=== PATIENT | male | born 2000 | race Caucasian/White ===

== ENCOUNTER 2020-10-19 14:28 | Emergency (ER) | payer OTHER, MEDICAID, SELFPAY ==
[2020-10-19 14:37] VITALS: BP 123/76; BP 142/80; PULSE 80; PULSE 90; RESP 16; TEMP 36.4; O2SAT 98; O2SAT 99; BMI 22.2
--- NOTE | 2020-10-19 14:59 | CT_ITS ---
EXAMINATION: CT CERVICAL SPINE WITHOUT CONTRAST CLINICAL INFORMATION: Flank pain COMPARISON: None TECHNIQUE: Axial images through the cervical spine without contrast. Sagittal and coronal reconstructions on the technologist workstation were performed. This CT examination was performed using dose optimization techniques as appropriate, variously including the following: *Automated exposure control *Adjustment of mA and/or kV according to patient size (this includes techniques or standardized protocols for targeted exams where dose is matched to indication/reason for exam; i.e. extremities or head) *Use of iterative reconstruction technique DLP: 2 x 3 mGy-cm FINDINGS: Bone alignment is normal. No fracture or dislocation is seen. Disc spaces are normal. Prevertebral soft tissues are normal. Visualized lung apices are clear. CT/CT cervical spine wo con IMPRESSION: Unremarkable examination.
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
[2020-10-19 15:04] VITALS: BP 142/80; PULSE 90; RESP 18; O2SAT 98
--- NOTE | 2020-10-19 15:06 | XR_ITS ---
EXAMINATION: RIGHT HAND/WRIST CLINICAL INFORMATION: Injury. COMPARISON: None TECHNIQUE: 4 views. FINDINGS: There is no visible acute fracture, dislocation or subluxation. No bony erosive changes seen. The soft tissues are normal. XR/XR hand wrist RT IMPRESSION: Unremarkable right hand/wrist exam.
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
--- NOTE | 2020-10-19 16:00 | PC.NURSE ---
Patient appears comfortable. Respirations remain regular and even. Skin PWD. Awaiting imaging results.
== END 2020-10-19 16:38 | disposition home or self-care (01) ==
PROVIDERS: Emergency Provider Emergency Medicine; PCP Pediatrics
DX: S16.1XXA Strain of muscle, fascia and tendon at neck level, initial encounter (principal); M54.2 Cervicalgia; M54.5 Low back pain; M79.641 Pain in right hand; M25.531 Pain in right wrist; V47.5XXA Car driver injured in collision with fixed or stationary object in traffic accident, initial encounter; Y93.9 Activity, unspecified; Y92.481 Parking lot as the place of occurrence of the external cause; Y99.9 Unspecified external cause status; F12.90 Cannabis use, unspecified, uncomplicated; F17.200 Nicotine dependence, unspecified, uncomplicated; Z71.6 Tobacco abuse counseling
CPT/HCPCS: 72125; 73110; 73130; 99284

== ENCOUNTER 2020-10-29 23:08 | Emergency (ER) | payer MEDICAID, SELFPAY ==
[2020-10-29 23:20] VITALS: BP 143/92; PULSE 98; RESP 16; TEMP 37.1; O2SAT 99; BMI 20.6
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
== END 2020-10-30 00:21 | disposition home or self-care (01) ==
PROVIDERS: Emergency Provider Student in an Organized Health Care Education/Training Program
DX: S61.512A Laceration without foreign body of left wrist, initial encounter (principal); S61.511A Laceration without foreign body of right wrist, initial encounter; X78.9XXA Intentional self-harm by unspecified sharp object, initial encounter; Z20.828 Contact with and (suspected) exposure to other viral communicable diseases; F17.200 Nicotine dependence, unspecified, uncomplicated; Y93.9 Activity, unspecified; Y92.009 Unspecified place in unspecified non-institutional (private) residence as the place of occurrence of the external cause; Y99.9 Unspecified external cause status
CPT/HCPCS: 99283

== ENCOUNTER 2020-11-16 19:46 | Emergency (ER) | payer MEDICAID, SELFPAY ==
[2020-11-16 20:16] VITALS: BP 125/59; PULSE 79; RESP 17; TEMP 36.6; O2SAT 97; BMI 21.1
--- NOTE | 2020-11-16 21:06 | ECG_ITS ---
Test Reason : CRISIS Blood Pressure : / mmHG Vent. Rate : 053 BPM Atrial Rate : 053 BPM P-R Int : 164 ms QRS Dur : 096 ms QT Int : 416 ms P-R-T Axes : 040 072 056 degrees QTc Int : 390 ms Sinus bradycardia with sinus arrhythmia Early Repolarization Borderline ECG When compared with ECG of 29-MAR-2020 06:30, Vent. rate has decreased BY 38 BPM Referred By: Frandy Conde Electronically Signed By:BRENDA BRAVO MD
[2020-11-16 21:42] LABS: Basophils Percent Auto 0.5 % (0-2); Eosinophils Absolute Auto 0.1 X10*3/uL (0.0-0.4); Eosinophils Percent Auto 1.1 % (0-4); Hematocrit 41.4 % (42-52); Hemoglobin 13.3 g/dl (14.0-18.0); Imm Gran Abs Auto 0.02 X10*3/uL (0.00-0.03); Imm Gran Pct Auto 0.2 % (0.0-0.4); Lymphocytes Absolute Auto 1.5 X10*3/uL (1.2-4.9); Lymphocytes Percent Auto 18.4 % (20-40); MANUAL DIFF FLAG NO; Mean Corpuscular HGB Conc 32.1 g/dl (31.0-36.0); Mean Corpuscular Hemoglobin 27.6 pg (27.0-33.0); Mean Corpuscular Volume 85.9 fL (80-98); Mean Platelet Volume 10.9 fL (9.4-12.4); Monocytes Absolute Auto 0.7 X10*3/uL (0.1-1.2); Monocytes Percent Auto 8.2 % (2-11); Neutrophils Percent Auto 71.6 % (45-73); Platelet Count 253 X10*3/uL (160-400); Red Blood Count 4.82 X10*6/uL (4.60-5.80); Red Cell Distribution Width 12.9 % (11.0-16.0); White Blood Count 8.4 X10*3/uL (4.8-10.8)
[2020-11-16 21:43] VITALS: BP 108/64; PULSE 59; RESP 16; TEMP 36.6; O2SAT 98
[2020-11-16 21:50] LABS: INTERNATIONAL NORM RATIO 1.1 (0.9-1.1); Prothrombin Time 12.8 SEC (10.8-13.0)
[2020-11-16 21:53] LABS: Partial Thromboplastin Time 31.8 SEC (24.1-38.0)
[2020-11-16 22:11] LABS: Ethanol < 10 mg/dL
[2020-11-16 22:13] LABS: Acetaminophen LAB < 1 mcg/mL (<30); Alanine Aminotransferase 16 U/L (0-40); Albumin Level 4.3 g/dL (3.5-5.0); Alkaline Phosphatase 71 U/L (39-117); Anion Gap 11 (12-20); Aspartate Amino Transferase 18 U/L (5-37); Bilirubin Direct 0.2 mg/dL (0.0-0.5); Bilirubin Total 0.5 mg/dL (0.0-1.0); Blood Urea Nitrogen 7 mg/dL (9-16); Calcium 9.1 mg/dL (8.4-10.2); Carbon Dioxide 29 mmol/L (22-29); Chloride 102 mmol/L (96-108); Creatinine Clr Calc Pharmacy 140.1; Estimated Glomerular Filt Rate > 60; Glucose Random 121 mg/dL (60-115); Potassium 4.5 mmol/l (3.3-5.1); Salicylate < 5.0 mg/dL (15-30); Sodium 137 mmol/L (135-145); Total Protein 6.9 g/dL (6.5-8.0)
--- NOTE | 2020-11-16 22:56 | PC.NURSE ---
Pt currently resting in bed. No signs of distress. Respirations unlabored.
--- NOTE | 2020-11-16 22:58 | PC.NURSE ---
[place] [employer] at bedside with patient
[2020-11-16 23:08] LABS: Amphetamine Screen Urine Not Detected (Not Detect); Barbiturates, Urine Not Detected (Not Detect); Benzodiazepines Screen Urine Not Detected (Not Detect); Cannabinoid Screen Urine POSITIVE (Not Detect); Cocaine Screen Urine Not Detected (Not Detect); Opiate Screen Urine Not Detected (Not Detect); Phencyclidine Screen Urine Not Detected (Not Detect)
--- NOTE | 2020-11-16 23:37 | PC.NURSE ---
Report received. PT is using the phone. Calm and cooperative. Waiting on disposition.
[2020-11-16 23:59] VITALS: BP 117/62; PULSE 82; RESP 17; TEMP 36.1; O2SAT 96
--- NOTE | 2020-11-17 00:32 | PC.NURSE ---
[facility] faxed and called.
[2020-11-17 01:20] VITALS: BP 117/62; PULSE 82; RESP 18; TEMP 36.1; O2SAT 96
--- NOTE | 2020-11-17 01:45 | ED_ITS ---
HPI - Psych General Chief Complaint: Psychiatric Symptoms <AMANDA Obrien Last Filed: 11/17/20 02:45> Stated Complaint: crisis <AMANDA Obrien Last Filed: 11/17/20 02:45> Time Seen by Provider: 11/16/20 21:06 <AMANDA Obrien Last Filed: 11/17/20 02:45> Source: patient <AMANDA Obrien Last Filed: 11/17/20 02:45> Mode of arrival: EMS <AMANDA Obrien Last Filed: 11/17/20 02:45> Limitations: no limitations <AMANDA Obrien Last Filed: 11/17/20 02:45> History of Present Illness HPI Narrative: Patient presents to the ER because he is depressed. Patient states he has been having issues with his girlfriend. Patient states in the morning he took two.2 clonidine pills to help him sleep. Patient then took 2 more pills of clonidine 0.2 two sleepafternoon. Patient then states when he woke up he got into argument with his girlfriend who has been having issues. Patient states whether organ both became angry and out of impulse patient grabbed a bottle of clonidine with the 30 pills in total and put then in the mouth and gargle powera de. Patient states he was not trying to kill himself. Patient states he was trying to get his girlfriend attention. Patient states he did not swallow any of the pills and he spit all them out. Patient brought in by EMS for evaluation. EMS found 20 pills and states the rest might have been dissolved from the powerade and snow. <AMANDA Obiren Last Filed: 11/17/20 02:45> Related Data Home Medications: Previous Rx's Medication Instructions Recorded ibuprofen 600 mg PO Q6H PRN #20 tab 10/19/20 <AMANDA Obrien Last Filed: 11/17/20 02:45> Allergies/Adverse Reactions: Allergies Allergy/AdvReac Type Severity Reaction Status Date / Time No Known Allergies Allergy Unverified 08/13/20 17:15 [No Known Allergies*] <AMANDA Obrien Last Filed: 11/17/20 02:45> Review of Systems Review of Systems: Yes all other systems are reviewed and are negative <AMANDA Obrien Last Filed: 11/17/20 02:45> Constitutional: Constitutional: Reports as per HPI and Reports no additional constitutional complaints <AMANDA Obrien Last Filed: 11/17/20 02:45> Eyes: Eyes: Reports as per HPI and Reports no additional eye complaints <AMANDA Obrien Last Filed: 11/17/20 02:45> ENT: Reports system reviewed and no additional complaints, except as documented and Reports as per HPI <AMANDA Obrien Last Filed: 11/17/20 02:45> Cardiovascular: Cardiovascular: Reports as per HPI and Reports no additional cardiovascular complaints <AMANDA Obrien Last Filed: 11/17/20 02:45> Respiratory: Respiratory: Reports as per HPI and Reports no additional respiratory complaints <AMANDA Obrien Last Filed: 11/17/20 02:45> Gastrointestinal: Gastrointestinal: Reports as per HPI and Reports no additional gastrointestinal complaints <AMANDA Obrien Last Filed: 11/17/20 02:45> Genitourinary: Genitourinary: Reports no additional male genitourinary complaints and Reports as per HPI <AMANDA Obrien Last Filed: 11/17/20 02:45> Musculoskeletal: Musculoskeletal: Reports no additional musculoskeletal complaints and Reports as per HPI <AMANDA Obrien Last Filed: 11/17/20 02:45> Neurologic: Reports system reviewed and no additional complaints, except as documented and Reports as per HPI <AMANDA Obrien Last Filed: 11/17/20 02:45> Psychiatric: Psychiatric: Reports no additional psychiatric complaints and Reports as per HPI <AMANDA Obrien Last Filed: 11/17/20 02:45> PMFSH Past Medical History Medical History: Medical History Anxiety Depression <AMANDA Obrien Last Filed: 11/17/20 02:45> Social History Social History: Social History Alcohol intake: unknown Smoking Status: Unknown if ever smoked Use of substances other than those prescribed or required for medical reasons: Unknown Substance Use Type: Marijuana Advance Directives: No Advance Directives Information Provided: No <AMANDA Obrien Last Filed: 11/17/20 02:45> Physical Exam Vital Signs: Vital Signs: Last Vital Signs Temp 96.9 F 11/17/20 01:20 Pulse 82 11/17/20 01:20 Resp 18 11/17/20 01:20 BP 117/62 11/17/20 01:20 Pulse Ox 96 11/17/20 01:20 Body Mass Index 21.1 <AMNADA Obrien - Last Filed: 11/17/20 02:45> Vital Signs: Last Vital Signs Temp 96.9 F 11/17/20 01:20 Pulse 82 11/17/20 01:20 Resp 18 11/17/20 01:20 BP 117/62 11/17/20 01:20 Pulse Ox 96 11/17/20 01:20 Body Mass Index 21.1 <Vincenzo Sotelo MD - Last Filed: 11/17/20 03:59> Const: General: cooperative, healthy appearing, comfortable, no acute distress, well developed, alert, awake and Physically active <AMANDA Obrien Last Filed: 11/17/20 02:45> Orientation/consciousness: patient oriented x3 <AMANDA Obrien Last Filed: 11/17/20 02:45> HENMT: Head: Yes normal to inspection and Yes No palpable skull fracture present <AMANDA Obrien Last Filed: 11/17/20 02:45> Eyes: General: appearance normal, both eyes and all related structures <AMANDA Obrien Last Filed: 11/17/20 02:45> Neck: Neck: Yes normal visual inspection, Yes full ROM, Yes no lymphadenopathy, Yes no meningeal signs, Yes trachea midline, Yes supple and No tender <AMANDA Obrien Last Filed: 11/17/20 02:45> Chest: Chest palpation & inspection: normal inspection of the chest and normal palpation of entire chest wall <AMANDA Obrien Last Filed: 11/17/20 02:45> Resp: Effort & Inspection: normal respiratory effort and able to speak in complete sentences <AMANDA Obrien Last Filed: 11/17/20 02:45> Cardio: Jugular venous distension: no JVD <AMANDA Obrien Last Filed: 11/17/20 02:45> Heart sounds: S1 normal heart sound present and S2 normal heart sound present <AMANDA Obrien Last Filed: 11/17/20 02:45> GI: Inspection: Yes normal to inspection and No abdominal wall ecchymosis <AMANDA Obrien Last Filed: 11/17/20 02:45> Palpation (GI): Soft to palpation, not firm, nontender, no guarding and not rigid <AMANDA Obrien - Last Filed: 11/17/20 02:45> : General: No CVA tenderness and Yes no CVA tenderness <AMANDA Obrien Last Filed: 11/17/20 02:45> Back/Spine/Pelvis: Back: no CVA tenderness, No CVA tenderness and No back tenderness <AMANDA Obrien Last Filed: 11/17/20 02:45> Skin: General skin exam: no rashes or lesions noted and elasticity normal <AMANDA Obrien Last Filed: 11/17/20 02:45> Trauma: no lacerations or abrasions <AMANDA Obrien Last Filed: 11/17/20 02:45> Neuro: General: patient oriented x3, gait normal, no meningeal signs and CN's II-XI intact bilaterally <AMANDA Obrien Last Filed: 11/17/20 02:45> Cranial nerves: Yes CN's II-XII intact bilaterally <AMANDA Obrien Last Filed: 11/17/20 02:45> Extrem: General: Yes normal to inspection and Yes full ROM <AMANDA Obrien Last Filed: 11/17/20 02:45> Psych: Appearance: grossly normal, well kempt and not disheveled <AMANDA Obrien Last Filed: 11/17/20 02:45> Course Course Course Narrative: Patient denies any suicidal ideation. Patient once again states he was not trying to kill himself. Patient will have initial labs and EKG done. Jesica ent given warm fluid rehydration. Patient vital signs are stable. Patient will have behavior health consultation. <AMANDA Obrien - Last Filed: 11/17/20 02:45> Patient seen by crisis will discharge patient home for outpatient therapy <Vincenzo Sotelo MD - Last Filed: 11/17/20 03:59> Reevaluation(s) Reevaluation #1: Initial labs came back normal. EKG was reviewed by Dr. Villanueva who states patient is not having a STEMI as per EKG and it was the same as prior visit. <AMANDA Obrien - Last Filed: 11/17/20 02:45> Time: 21:32 <AMANDA Obrien - Last Filed: 11/17/20 02:45> Reevaluation #2: Repeat labs pending. Patient vital signs are stable. Patient awaiting N evaluation. Case signed out to Dr. Sotelo. He states no need to call poison Control. Patient denies any suicidal or homicidal ideation. <AMANDA Obrien - Last Filed: 11/17/20 02:45> Time: 02:06 <AMANDA Obrien - Last Filed: 11/17/20 02:45> MDM - Psych MDM Narrative Medical decision making narrative: Depression <AMANDA Obrien Last Filed: 11/17/20 02:45> Restraints Face to Face Assessment: Face to Face Assessment: Current Situation: After assessment of the patient, a review of the pertinent medical record and a discussion with nursing staff, I feel the patient requires a restrain intervention. Reaction To: [] Medical Condition: [] Behavioral State: [] Continued Need: [] <AMANDA Obrien Last Filed: 11/17/20 02:45> Lab Data Result diagrams: : 11/16/20 21:32 11/17/20 01:28 <AMANDA Obrien Last Filed: 11/17/20 02:45> Labs: Lab Results 11/16/20 11/16/20 11/16/20 Range/Units 21:32 21:32 21:32 WBC 8.4 (4.8-10.8) X10*3/uL RBC 4.82 (4.60-5.80) X10*6/uL Hgb 13.3 L (14.0-18.0) g/dl Hct 41.4 L (42-52) % MCV 85.9 (80-98) fL MCH 27.6 (27.0-33.0) pg MCHC 32.1 (31.0-36.0) g/dl RDW 12.9 (11.0-16.0) % Plt Count 253 (160-400) X10*3/uL MPV 10.9 (9.4-12.4) fL Immature Gran % (Auto) 0.2 (0.0-0.4) % Neut % (Auto) 71.6 (45-73) % Lymph % (Auto) 18.4 L (20-40) % [place] % (Auto) 8.2 (2-11) % Eos % (Auto) 1.1 (0-4) % Baso % (Auto) 0.5 (0-2) % Lymph # (Auto) 1.5 (1.2-4.9) X10*3/uL [place] # (Auto) 0.7 (0.1-1.2) X10*3/uL Eos # (Auto) 0.1 (0.0-0.4) X10*3/uL Baso # (Auto) 0.0 (0.0-0.2) X10*3/uL Abs Immat Gran (auto) 0.02 (0.00-0.03) X10*3/uL Absolute Neuts (auto) 6.0 (2.0-8.3) X10*3/uL Absolute Nucleated RBC 0.000 (0.0-0.012) X10*3/uL Nucleated RBC % (auto) 0.0 (0.0-0.2) /100WBC PT (10.8-13.0) SEC INR (0.9-1.1) APTT (24.1-38.0) SEC Sodium 137 (135-145) mmol/L Potassium 4.5 (3.3-5.1) mmol/l Chloride 102 (96-108) mmol/L Carbon Dioxide 29 (22-29) mmol/L Anion Gap 11 L (12-20) BUN 7 L (9-16) mg/dL Creatinine 0.84 (0.5-1.4) mg/dL Estim Creat Clear Calc 140.1 Estimated GFR > 60 Random Glucose 121 H (60-115) mg/dL Calcium 9.1 (8.4-10.2) mg/dL Total Bilirubin 0.5 (0.0-1.0) mg/dL Direct Bilirubin 0.2 (0.0-0.5) mg/dL AST 18 (5-37) U/L ALT 16 (0-40) U/L Alkaline Phosphatase 71 (39-117) U/L Total Protein 6.9 (6.5-8.0) g/dL Albumin 4.3 (3.5-5.0) g/dL Salicylates < 5.0 L (15-30) mg/dL Urine Opiates Screen (Not Detect) Acetaminophen < 1 (<30) mcg/mL Ur Barbiturates Screen (Not Detect) Ur Phencyclidine Scrn (Not Detect) Ur Amphetamines Screen (Not Detect) U Benzodiazepines Scrn (Not Detect) Urine Cocaine Screen (Not Detect) U Marijuana (THC) Screen (Not Detect) Ethyl Alcohol < 10 mg/dL 11/16/20 11/16/20 11/17/20 Range/Units 21:32 22:48 01:28 WBC (4.8-10.8) X10*3/uL RBC (4.60-5.80) X10*6/uL Hgb (14.0-18.0) g/dl Hct (42-52) % MCV (80-98) fL MCH (27.0-33.0) pg MCHC (31.0-36.0) g/dl RDW (11.0-16.0) % Plt Count (160-400) X10*3/uL MPV (9.4-12.4) fL Immature Gran % (Auto) (0.0-0.4) % Neut % (Auto) (45-73) % Lymph % (Auto) (20-40) % [place] % (Auto) (2-11) % Eos % (Auto) (0-4) % Baso % (Auto) (0-2) % Lymph # (Auto) (1.2-4.9) X10*3/uL [place] # (Auto) (0.1-1.2) X10*3/uL Eos # (Auto) (0.0-0.4) X10*3/uL Baso # (Auto) (0.0-0.2) X10*3/uL Abs Immat Gran (auto) (0.00-0.03) X10*3/uL Absolute Neuts (auto) (2.0-8.3) X10*3/uL Absolute Nucleated RBC (0.0-0.012) X10*3/uL Nucleated RBC % (auto) (0.0-0.2) /100WBC PT 12.8 (10.8-13.0) SEC INR 1.1 (0.9-1.1) APTT 31.8 (24.1-38.0) SEC Sodium 138 (135-145) mmol/L Potassium 4.1 (3.3-5.1) mmol/l Chloride 102 (96-108) mmol/L Carbon Dioxide 30 H (22-29) mmol/L Anion Gap 10 L (12-20) BUN 6 L (9-16) mg/dL Creatinine 0.79 (0.5-1.4) mg/dL Estim Creat Clear Calc 149.0 Estimated GFR > 60 Random Glucose 112 (60-115) mg/dL Calcium 9.3 (8.4-10.2) mg/dL Total Bilirubin 0.8 (0.0-1.0) mg/dL Direct Bilirubin 0.3 (0.0-0.5) mg/dL AST 18 (5-37) U/L ALT 13 (0-40) U/L Alkaline Phosphatase 71 (39-117) U/L Total Protein 7.0 (6.5-8.0) g/dL Albumin 4.2 (3.5-5.0) g/dL Salicylates < 5.0 L (15-30) mg/dL Urine Opiates Screen Not Detected (Not Detect) Acetaminophen < 1 (<30) mcg/mL Ur Barbiturates Screen Not Detected (Not Detect) Ur Phencyclidine Scrn Not Detected (Not Detect) Ur Amphetamines Screen Not Detected (Not Detect) U Benzodiazepines Scrn Not Detected (Not Detect) Urine Cocaine Screen Not Detected (Not Detect) U Marijuana (THC) Screen POSITIVE H (Not Detect) Ethyl Alcohol mg/dL <AMANDA Obrien - Last Filed: 11/17/20 02:45> Lab Results 12/21/20 12/21/20 12/21/20 Range/Units 21:32 21:32 21:32 WBC 8.4 (4.8-10.8) X10*3/uL RBC 4.82 (4.60-5.80) X10*6/uL Hgb 13.3 L (14.0-18.0) g/dl Hct 41.4 L (42-52) % MCV 85.9 (80-98) fL MCH 27.6 (27.0-33.0) pg MCHC 32.1 (31.0-36.0) g/dl RDW 12.9 (11.0-16.0) % Plt Count 253 (160-400) X10*3/uL MPV 10.9 (9.4-12.4) fL Immature Gran % (Auto) 0.2 (0.0-0.4) % Neut % (Auto) 71.6 (45-73) % Lymph % (Auto) 18.4 L (20-40) % [place] % (Auto) 8.2 (2-11) % Eos % (Auto) 1.1 (0-4) % Baso % (Auto) 0.5 (0-2) % Lymph # (Auto) 1.5 (1.2-4.9) X10*3/uL [place] # (Auto) 0.7 (0.1-1.2) X10*3/uL Eos # (Auto) 0.1 (0.0-0.4) X10*3/uL Baso # (Auto) 0.0 (0.0-0.2) X10*3/uL Abs Immat Gran (auto) 0.02 (0.00-0.03) X10*3/uL Absolute Neuts (auto) 6.0 (2.0-8.3) X10*3/uL Absolute Nucleated RBC 0.000 (0.0-0.012) X10*3/uL Nucleated RBC % (auto) 0.0 (0.0-0.2) /100WBC PT (10.8-13.0) SEC INR (0.9-1.1) APTT (24.1-38.0) SEC Sodium 137 (135-145) mmol/L Potassium 4.5 (3.3-5.1) mmol/l Chloride 102 (96-108) mmol/L Carbon Dioxide 29 (22-29) mmol/L Anion Gap 11 L (12-20) BUN 7 L (9-16) mg/dL Creatinine 0.84 (0.5-1.4) mg/dL Estim Creat Clear Calc 140.1 Estimated GFR > 60 Random Glucose 121 H (60-115) mg/dL Calcium 9.1 (8.4-10.2) mg/dL Total Bilirubin 0.5 (0.0-1.0) mg/dL Direct Bilirubin 0.2 (0.0-0.5) mg/dL AST 18 (5-37) U/L ALT 16 (0-40) U/L Alkaline Phosphatase 71 (39-117) U/L Total Protein 6.9 (6.5-8.0) g/dL Albumin 4.3 (3.5-5.0) g/dL Salicylates < 5.0 L (15-30) mg/dL Urine Opiates Screen (Not Detect) Acetaminophen < 1 (<30) mcg/mL Ur Barbiturates Screen (Not Detect) Ur Phencyclidine Scrn (Not Detect) Ur Amphetamines Screen (Not Detect) U Benzodiazepines Scrn (Not Detect) Urine Cocaine Screen (Not Detect) U Marijuana (THC) Screen (Not Detect) Ethyl Alcohol < 10 mg/dL 11/16/20 11/16/20 11/17/20 Range/Units 21:32 22:48 01:28 WBC (4.8-10.8) X10*3/uL RBC (4.60-5.80) X10*6/uL Hgb (14.0-18.0) g/dl Hct (42-52) % MCV (80-98) fL MCH (27.0-33.0) pg MCHC (31.0-36.0) g/dl RDW (11.0-16.0) % Plt Count (160-400) X10*3/uL MPV (9.4-12.4) fL Immature Gran % (Auto) (0.0-0.4) % Neut % (Auto) (45-73) % Lymph % (Auto) (20-40) % [place] % (Auto) (2-11) % Eos % (Auto) (0-4) % Baso % (Auto) (0-2) % Lymph # (Auto) (1.2-4.9) X10*3/uL [place] # (Auto) (0.1-1.2) X10*3/uL Eos # (Auto) (0.0-0.4) X10*3/uL Baso # (Auto) (0.0-0.2) X10*3/uL Abs Immat Gran (auto) (0.00-0.03) X10*3/uL Absolute Neuts (auto) (2.0-8.3) X10*3/uL Absolute Nucleated RBC (0.0-0.012) X10*3/uL Nucleated RBC % (auto) (0.0-0.2) /100WBC PT 12.8 (10.8-13.0) SEC INR 1.1 (0.9-1.1) APTT 31.8 (24.1-38.0) SEC Sodium 138 (135-145) mmol/L Potassium 4.1 (3.3-5.1) mmol/l Chloride 102 (96-108) mmol/L Carbon Dioxide 30 H (22-29) mmol/L Anion Gap 10 L (12-20) BUN 6 L (9-16) mg/dL Creatinine 0.79 (0.5-1.4) mg/dL Estim Creat Clear Calc 149.0 Estimated GFR > 60 Random Glucose 112 (60-115) mg/dL Calcium 9.3 (8.4-10.2) mg/dL Total Bilirubin 0.8 (0.0-1.0) mg/dL Direct Bilirubin 0.3 (0.0-0.5) mg/dL AST 18 (5-37) U/L ALT 13 (0-40) U/L Alkaline Phosphatase 71 (39-117) U/L Total Protein 7.0 (6.5-8.0) g/dL Albumin 4.2 (3.5-5.0) g/dL Salicylates < 5.0 L (15-30) mg/dL Urine Opiates Screen Not Detected (Not Detect) Acetaminophen < 1 (<30) mcg/mL Ur Barbiturates Screen Not Detected (Not Detect) Ur Phencyclidine Scrn Not Detected (Not Detect) Ur Amphetamines Screen Not Detected (Not Detect) U Benzodiazepines Scrn Not Detected (Not Detect) Urine Cocaine Screen Not Detected (Not Detect) U Marijuana (THC) Screen POSITIVE H (Not Detect) Ethyl Alcohol mg/dL <Vincenzo Sotelo MD - Last Filed: 11/17/20 03:59> ECG Data Interpretation: Sinus bradycardia. Heart rate 53. Greater interval 164. QTc 390. Current duration 96. Early repolarization. negative stemi <AMANDA Obrien - Last Filed: 11/17/20 02:45> Discharge Plan Discharge Clinical Impression: Depression <AMANDA Obrien - Last Filed: 11/17/20 02:45> Patient Disposition: Home, Self-Care <AMANDA Obrien - Last Filed: 11/17/20 02:45> Instructions: Depression (ED) <AMANDA Obrien - Last Filed: 11/17/20 02:45> Additional Instructions: Follow-up with therapist <AMANDA Obrien - Last Filed: 11/17/20 02:45> Prescriptions: No Action ibuprofen 600 mg tablet 600 mg PO Q6H PRN (Reason: pain) Qty: 20 RF: 0 <AMANDA Obrien - Last Filed: 11/17/20 02:45>
[2020-11-17 02:02] LABS: Alanine Aminotransferase 13 U/L (0-40); Albumin Level 4.2 g/dL (3.5-5.0); Alkaline Phosphatase 71 U/L (39-117); Anion Gap 10 (12-20); Aspartate Amino Transferase 18 U/L (5-37); Bilirubin Direct 0.3 mg/dL (0.0-0.5); Bilirubin Total 0.8 mg/dL (0.0-1.0); Blood Urea Nitrogen 6 mg/dL (9-16); Calcium 9.3 mg/dL (8.4-10.2); Carbon Dioxide 30 mmol/L (22-29); Chloride 102 mmol/L (96-108); Estimated Glomerular Filt Rate > 60; Glucose Random 112 mg/dL (60-115); Potassium 4.1 mmol/l (3.3-5.1); Sodium 138 mmol/L (135-145)
[2020-11-17 02:56] LABS: Acetaminophen LAB < 1 mcg/mL (<30); Salicylate < 5.0 mg/dL (15-30)
--- NOTE | 2020-11-17 03:16 | PC.NURSE ---
BHN at PT bedside.
== END 2020-11-17 06:29 | disposition home or self-care (01) ==
PROVIDERS: Physician Assistant; Emergency Provider Internal Medicine
DX: F32.9 Major depressive disorder, single episode, unspecified (principal)
CPT/HCPCS: 36415; 80053; 80076; 80307; 80320; 82248; 85025; 85610; 85730; 93005; 99285; G0480

== ENCOUNTER 2023-06-27 15:25 | Outpatient (REF) | payer MEDICAID, SELFPAY ==
[2023-06-27 17:56] LABS: Amphetamine Screen Urine Not Detected (Not Detect); Barbiturates, Urine Not Detected (Not Detect); Benzodiazepines Screen Urine Not Detected (Not Detect); Cannabinoid Screen Urine Not Detected (Not Detect); Cocaine Screen Urine Not Detected (Not Detect); Fentanyl, urine Not Detected (Not Detect); Opiate Screen Urine Not Detected (Not Detect); Phencyclidine Screen Urine Not Detected (Not Detect)
== END 2023-06-27 15:26 | disposition home or self-care (01) ==
LOC: HO.CHCLDS 15:25
PROVIDERS: Visit Provider Pediatrics
DX: Z13.9 Encounter for screening, unspecified (principal)
CPT/HCPCS: 80307

== ENCOUNTER 2023-08-17 11:21 | Outpatient (REF) | payer MEDICAID, SELFPAY ==
[2023-08-17 15:15] LABS: Amphetamine Screen Urine Not Detected (Not Detect); Barbiturates, Urine Not Detected (Not Detect); Benzodiazepines Screen Urine Not Detected (Not Detect); Cannabinoid Screen Urine Not Detected (Not Detect); Cocaine Screen Urine Not Detected (Not Detect); Fentanyl, urine Not Detected (Not Detect); Opiate Screen Urine Not Detected (Not Detect); Phencyclidine Screen Urine Not Detected (Not Detect)
== END 2023-08-17 11:22 | disposition home or self-care (01) ==
LOC: HO.CHCLDS 11:21
PROVIDERS: Visit Provider Pediatrics
DX: Z02.83 Encounter for blood-alcohol and blood-drug test (principal)
CPT/HCPCS: 80307